=== PATIENT | male | born 1945 | race Caucasian/White ===

== ENCOUNTER → 2020-05-09 10:25 | Outpatient (BNVA) | payer MEDICARE, SELFPAY | PROVIDERS: PCP Internal Medicine; Visit Provider Urology | DX: R31.29 Other microscopic hematuria (principal) | CPT/HCPCS: 81002; 99212 ==

== ENCOUNTER 2023-03-22 15:34 | Emergency (ER) | payer MEDICARE, SELFPAY ==
--- NOTE | ~2023-03-22 | CT_ITS ---
EXAMINATION: CT HEAD WITHOUT CONTRAST CLINICAL INFORMATION: 27-year-old male with acute mental status change. COMPARISON: None available. TECHNIQUE: Contiguous axial imaging was performed from the skull base to vertex without intravenous administration of contrast. This CT examination was performed using dose optimization techniques as appropriate, variously including the following: *Automated exposure control *Adjustment of mA and/or kV according to patient size (this includes techniques or standardized protocols for targeted exams where dose is matched to indication/reason for exam; i.e. extremities or head) *Use of iterative reconstruction technique DLP: 620 mGy-cm FINDINGS: There is no evidence of acute intracranial hemorrhage or edematous territorial infarction. De Leon-white matter differentiation is preserved. There is no abnormal attenuation within the brain parenchyma. The ventricles are normal in morphology but prominent sulci and cisterns are dilated. No evidence for obstructive hydrocephalus. No abnormal mass effect or midline shift. No extra-axial fluid collections. No acute soft tissue or osseous abnormalities. The mastoid air cells and visualized paranasal sinuses are clear. CT/CT head/brain wo IV con IMPRESSION: No acute intracranial pathology. Global atrophy
--- NOTE | 2023-03-22 16:15 | ED.AMS ---
HPI - Altered Mental Status General Chief Complaint: Altered Mental Status Stated Complaint: AMS FROM [facility] Time Seen by Provider: 03/22/23 16:14 Source: EMS and RN notes reviewed Mode of arrival: EMS Limitations: altered mental status History of Present Illness HPI narrative: Patient from [facility] with history of AFib on Eliquis has pacemaker admitted hospital 1 week ago for ? Dementia comes here as patient was very agitated and assaulting the staff which is new per staff no recent fall or vomiting no fever patient received 5 mg of Zyprexa and 2 mg of Ativan IM prior to arrival according to the staff patient agitation and behavior started 2 days after arrival to the group home and is getting worse Related Data Home Medications Medication Instructions Recorded Confirmed apixaban 5 mg tablet 5 mg PO BID 05/09/20 03/22/23 isosorbide mononitrate 60 mg 60 mg PO DAILY 05/09/20 03/22/23 tablet,extended release 24 hr acetaminophen 325 mg tablet 650 mg PO Q6H PRN Pain (Scale 03/22/23 03/22/23 Score 1-3) atorvastatin 40 mg tablet 40 mg PO BEDTIME 03/22/23 03/22/23 digoxin 125 mcg (0.125 mg) tablet 125 mcg PO DAILY 03/22/23 03/22/23 divalproex 500 mg tablet,delayed 500 mg PO BID 03/22/23 03/22/23 release hydroxyzine HCl 50 mg tablet 50 mg PO Q6H PRN Anxiety 03/22/23 03/22/23 metoprolol tartrate 50 mg tablet 50 mg PO BID 03/22/23 03/22/23 mirtazapine 7.5 mg tablet 7.5 mg PO BEDTIME 03/22/23 03/22/23 ondansetron 4 mg disintegrating 4 mg PO Q6H PRN Nausea And Vomiting 03/22/23 03/22/23 tablet risperidone 0.25 mg tablet 0.25 mg PO DAILY PRN Agitation 03/22/23 03/22/23 risperidone 0.5 mg tablet 0.5 mg PO BID 03/22/23 03/22/23 rivastigmine tartrate 6 mg capsule 6 mg PO BID 03/22/23 03/22/23 sennosides 8.6 mg tablet (senna) 8.6 mg PO BID 03/22/23 03/22/23 Allergies Allergy/AdvReac Type Severity Reaction Status Date / Time No Known Allergies Allergy Verified 05/09/20 10:33 Review of Systems Review of Systems: Yes Unobtainable due to mental status PMFSH Past Medical History Medical History Pacemaker Microscopic hematuria Surgical History History of total right knee replacement Family History Family History Father No problems noted. Social History Social History Smoked in Last 30 Days: No Use of substances other than those prescribed or required for medical reasons: No Advance Directives: No Advance Directives Information Provided: No Physical Exam ED Vital Signs: Vital Signs - 24 hr 03/22/23 16:17 03/22/23 17:08 03/22/23 19:21 Temperature 99.9 F 97.9 F Pulse Rate 82 75 Respiratory Rate 16 18 Blood Pressure 110/78 97/63 Pulse Oximetry 98 96 Oxygen Delivery Method Room Air Room Air Room Air 03/22/23 23:03 Temperature Pulse Rate 76 Respiratory Rate 12 Blood Pressure 106/65 Pulse Oximetry Oxygen Delivery Method BMI result Body Mass Index 24.4 Appearance: Lethargic. No acute distress. Eyes: Pupils round and reactive ENT: Pharynx normal. Oral Mucosa moist Neck: Normal inspection. Neck supple. CVS: Normal heart rate and rhythm. Pulses normal. Respiratory: No respiratory distress. Equal air entry bilateral, Abdomen: Soft and nontender. Bowel sounds are present, no mass palpable, no CVA tenderness Skin: Skin warm and dry. Normal skin color. Normal skin turgor. Extremities: No lower extremity edema. neuro: Moving all 4 extremities agitated no focal deficits Medications Administered Discontinued Medications Generic Name Dose Route Start Last Admin Trade Name Freq PRN Reason Stop Dose Admin Haloperidol Lactate 5 mg 03/22/23 21:01 03/22/23 22:59 Haloperidol Lactate 5 Mg/Ml Vial IM 03/22/23 21:02 5 mg ONCE ONE Administration Medical Decision Making Medical Decision Making [facility] Narrative: Patient dementia with psychotic behavior with agitation CT scan negative for any acute labs are stable sent the patient back to group home advised to continue his medication follow with psychiatrist Lab Data MDM Lab Attestation statement: I reviewed the patient's lab results. 03/22/23 19:20 03/22/23 19:20 Labs: Lab Results 03/22/23 03/22/23 Range/Units 19:20 19:43 WBC 6.9 (4.8-10.8) X10*3/uL RBC 4.59 L (4.60-5.80) X10*6/uL Hgb 14.3 (14.0-18.0) g/dl Hct 41.0 L (42.0-52.0) % MCV 89.3 (80.0-98.0) fL MCH 31.2 (27.0-33.0) pg MCHC 34.9 (31.0-36.0) g/dl RDW 12.9 (11.0-16.0) % Plt Count 227 (160-400) X10*3/uL MPV 9.6 (9.4-12.4) fL Immature Gran % (Auto) 0.1 (0.0-0.4) % Neut % (Auto) 74.8 H (45-73) % Lymph % (Auto) 18.4 L (20-40) % [place] % (Auto) 5.8 (2-11) % Eos % (Auto) 0.6 (0-4) % Baso % (Auto) 0.3 (0-2) % Lymph # (Auto) 1.3 (1.2-4.9) X10*3/uL [place] # (Auto) 0.4 (0.1-1.2) X10*3/uL Eos # (Auto) 0.0 (0.0-0.4) X10*3/uL Baso # (Auto) 0.0 (0.0-0.2) X10*3/uL Abs Immat Gran (auto) 0.01 (0.00-0.03) X10*3/uL Absolute Neuts (auto) 5.1 (2.0-8.3) x10*3/uL Absolute Nucleated RBC 0.000 (0.0-0.012) X10*3/uL Nucleated RBC % (auto) 0.0 (0.0-0.2) /100WBC PT 16.8 H (11.1-13.3) SEC INR 1.4 H (0.9-1.1) APTT 37.2 H (26.0-36.8) SEC Sodium 144 (135-145) mmol/L Potassium 3.7 (3.3-5.1) mmol/L Chloride 107 (96-108) mmol/L Carbon Dioxide 26 (22-29) mmol/L Anion Gap 15 (12-20) BUN 19 H (9-16) mg/dL Creatinine 1.05 (0.5-1.4) mg/dL Estim Creat Clear Calc 58.9 Estimated GFR > 60 Random Glucose 115 (60-115) mg/dL Calcium 9.2 (8.4-10.2) mg/dL Total Bilirubin 1.1 H (0.0-1.0) mg/dL AST 33 (5-37) U/L ALT 22 (0-40) U/L Alkaline Phosphatase 70 (39-117) U/L Total Protein 7.8 (6.5-8.0) g/dL Albumin 4.1 (3.5-5.0) g/dL Urine Color Dark Yellow Urine Appearance Clear Urine pH 5.5 (5.0-9.0) Ur Specific [place] >= 1.030 H (1.005-1.025) Urine Protein Trace (Neg-Trace) mg/dL Urine Glucose (UA) Negative (Negative) mg/dL Urine Ketones 40 (Negative) mg/dL Urine Blood Large (3+) H (Negative) Urine Nitrite Negative (Negative) Ur Leukocyte Esterase Negative (Negative) Urine RBC >20 H (0-2) /HPF Urine WBC 11-20 H (0-5) /HPF Ur Squamous Epith Cells 0-2 (0-2) /HPF Urine Bacteria None Seen (None Seen) Hyaline Casts 3-5 (0-2) /LPF Discharge Plan Discharge Clinical Impression: Dementia with psychotic disturbance Patient Disposition: Xfer Psychiatric Hosp Transfer Details: Dementia unit Instructions: Dementia (ED) Additional Instructions: Patient's CT scan of the head is negative labs are stable Needs psychiatric evaluation/medication adjustment by psychiatrist for now continue Remeron and Risperdal Patient may need Zyprexa for severe agitation Patient relax and calm at the time of transfer to dementia unit Prescriptions: No Action sennosides [senna] 8.6 mg Tablet 8.6 mg PO BID risperidone 0.25 mg Tablet 0.25 mg PO DAILY PRN (Reason: Agitation) divalproex 500 mg Tablet,Delayed Release (Dr/Ec) 500 mg PO BID rivastigmine tartrate 6 mg Capsule 6 mg PO BID metoprolol tartrate 50 mg Tablet 50 mg PO BID digoxin 125 mcg (0.125 mg) Tablet 125 mcg PO DAILY ondansetron 4 mg Tablet,Disintegrating 4 mg PO Q6H PRN (Reason: Nausea And Vomiting) risperidone 0.5 mg Tablet 0.5 mg PO BID mirtazapine 7.5 mg Tablet 7.5 mg PO BEDTIME acetaminophen 325 mg Tablet 650 mg PO Q6H PRN (Reason: Pain (Scale Score 1-3)) hydroxyzine HCl 50 mg Tablet 50 mg PO Q6H PRN (Reason: Anxiety) atorvastatin 40 mg Tablet 40 mg PO BEDTIME isosorbide mononitrate 60 mg tablet extended release 24 hr 60 mg PO DAILY Eliquis 5 mg tablet 5 mg PO BID Interventions: Acute Care Transfer Worksheet (ED) Last Done: 03/22/23 23:12 Discharge Date/Time: 03/22/23 23:14
[2023-03-22 16:17] VITALS: PULSE 104; TEMP 37.7; O2SAT 95; BMI 24.4
--- NOTE | 2023-03-22 16:25 | PHA.MEDREC ---
Pharmacy Consult ? Medication Reconciliation Pharmacy has completed the medication reconciliation. Patient came from [place] with med list. Patient on rousvastatin at home but was switch to atorvastatin while at [facility]. Patient prescribed rivastigme patches at home but switched to PO tablets at [facility]. Kept all medications how patient has been receiving them at [place]. Cheryl Ackerman, PharmD
--- NOTE | 2023-03-22 16:30 | PC.NURSE ---
pt presents to the ED as disoriented/agitated/combative towards staff at [facility] in [place]. per ems, staff at facility administered 5mg of ativan and 5mg zyprexa 40 minutes prior to arrival d/t behavioral concern. pt remains disoriented/agitated/combative towards staff upon ED arrival. 3:1 assist needed in attempts to change pt into hospital attire. equipment placed on pt when he then continuously ripped equipment off. rectal temperature obtained on ED arrival at 99.9. no other vitals obtained at this time d/t behavior. ED provider bedside assessing pt aware of pt's status. no sob/wob noted. respirations even and unlabored.
--- NOTE | 2023-03-22 17:01 | MHC.EDTECH ---
Patient inc therefore patient changed and repositioned
[2023-03-22 17:08] VITALS: BP 110/78; PULSE 82; RESP 16; O2SAT 98
--- NOTE | 2023-03-22 17:08 | PC.NURSE ---
pt incontinent of urine. pt remains agitated/combative towards staff at this time. oil changer successful. fresh pads applied to bed. vss and up to date. nsr on the director correctional agency. [place] steam table attendant now bedside for support. per employee, pt has had an increase in agitation/being combative towards staff x 2 days. employee states that around a week ago the pt was able to perform ADL's but needed some assistance w/ feeding. pt now remains bedbound as he is too altered to participate in wn care/ambulate as he has an unsteady gait. respirations remain even and unlabored. call [facility] placed within reach.
--- NOTE | 2023-03-22 17:20 | PC.NURSE ---
pt to CT at this time. will attempt to obtain blood work when pt returns. shawneeamanda steam tender remains bedside at this time.
--- NOTE | 2023-03-22 17:32 | PC.NURSE ---
Sincere (RN for [facility]) called for a status update on pt at this time. this RN relayed information via telephone in regards to pt's care/plan of care at this time.
--- NOTE | 2023-03-22 19:03 | PC.NURSE ---
22gIV placed in the right forearm - delay in obtaining labs d/t pt's behavior/unable to have positive blood return via IV access.
--- NOTE | 2023-03-22 19:15 | PC.NURSE ---
assumed care of pt at 1900 - pt resting comfortably on stretcher with workers compensation adjuster at bedside. per previous RN, iv was placed but unable to obtain labs from it. tech made aware, going in room to attempt lab draw. provider aware. plan of care ongoing
[2023-03-22 19:21] VITALS: BP 97/63; PULSE 75; RESP 18; TEMP 36.6; O2SAT 96
[2023-03-22 19:27] LABS: MANUAL DIFF FLAG NO
[2023-03-22 19:33] LABS: Basophils Percent Auto 0.3 % (0-2); Eosinophils Percent Auto 0.6 % (0-4); Hemoglobin 14.3 g/dl (14.0-18.0); Imm Gran Abs Auto 0.01 X10*3/uL (0.00-0.03); Imm Gran Pct Auto 0.1 % (0.0-0.4); Lymphocytes Absolute Auto 1.3 X10*3/uL (1.2-4.9); Lymphocytes Percent Auto 18.4 % (20-40); Mean Corpuscular HGB Conc 34.9 g/dl (31.0-36.0); Mean Corpuscular Hemoglobin 31.2 pg (27.0-33.0); Mean Corpuscular Volume 89.3 fL (80.0-98.0); Mean Platelet Volume 9.6 fL (9.4-12.4); Monocytes Absolute Auto 0.4 X10*3/uL (0.1-1.2); Monocytes Percent Auto 5.8 % (2-11); Neutrophils Absolute Auto 5.1 x10*3/uL (2.0-8.3); Neutrophils Percent Auto 74.8 % (45-73); Platelet Count 227 X10*3/uL (160-400); Red Blood Count 4.59 X10*6/uL (4.60-5.80); Red Cell Distribution Width 12.9 % (11.0-16.0); White Blood Count 6.9 X10*3/uL (4.8-10.8)
[2023-03-22 19:43] LABS: Alanine Aminotransferase 22 U/L (0-40); Albumin Level 4.1 g/dL (3.5-5.0); Alkaline Phosphatase 70 U/L (39-117); Anion Gap 15 (12-20); Aspartate Amino Transferase 33 U/L (5-37); Bilirubin Total 1.1 mg/dL (0.0-1.0); Blood Urea Nitrogen 19 mg/dL (9-16); Calcium 9.2 mg/dL (8.4-10.2); Carbon Dioxide 26 mmol/L (22-29); Chloride 107 mmol/L (96-108); Creatinine Clr Calc Pharmacy 58.9; Estimated Glomerular Filt Rate > 60; Glucose Random 115 mg/dL (60-115); Potassium 3.7 mmol/L (3.3-5.1); Sodium 144 mmol/L (135-145); Total Protein 7.8 g/dL (6.5-8.0)
--- NOTE | 2023-03-22 19:44 | PC.NURSE ---
pt straight cath'd for urine sample per MD verbal order . tolerated well.
[2023-03-22 19:48] LABS: INTERNATIONAL NORM RATIO 1.4 (0.9-1.1); Prothrombin Time 16.8 SEC (11.1-13.3)
[2023-03-22 19:49] LABS: Appearance Urine Clear; Color Urine Dark Yellow; Glucose Urine UA Negative (Negative); Leukocyte Esterase Urine Negative (Negative); Nitrite Urine Negative (Negative); PH 5.5 (5.0-9.0); Specific Gravity - Urine >= 1.030 (1.005-1.025); UMIC TRIGGER UACC YES; Urine Blood Large (3+) (Negative); Urine Ketones 40 mg/dL (Negative); Urine Protein Trace mg/dL (Neg-Trace)
[2023-03-22 19:50] LABS: Partial Thromboplastin Time 37.2 SEC (26.0-36.8)
--- NOTE | 2023-03-22 19:53 | MHC.EDTECH ---
labs and urine collected by this field underwriter for prior shift
[2023-03-22 20:02] LABS: Bacteria Urine None Seen (None Seen); RBC Urine >20 /HPF (0-2); Squamous Epithelial Cell Urine 0-2 /HPF (0-2); UACC Culture Trigger YES
--- NOTE | 2023-03-22 20:48 | PC.NURSE ---
pt waiting for ambulance transfer back to facility
--- NOTE | 2023-03-22 21:12 | PC.NURSE ---
Pt facility requesting that we medicated patient with 2mg ativan IM and 5mg haldol IM. Charge nurse at facility saying they do not have enough staff to handle pt and that 5mg zyprexa po will not be enough. MD Alejandro made aware and on phone with nurse from facility. shortage of ativan, no IM vials available. MD ordering 5mg haldol IM to be administered prior to patient's departure. pt restless, agitated, swinging legs over side rails of stretcher. continues to be directed back into bed by staff. plan of care ongoing. waiting for ambulance transport back to facility.
[2023-03-22] MEDS: Haloperidol Lactate 5 MG/ML VIAL IM (22:59)
[2023-03-22 23:03] VITALS: BP 106/65; PULSE 76; RESP 12
== END 2023-03-22 23:14 ==
PROVIDERS: Emergency Provider Internal Medicine
DX: F03.92 Unspecified dementia, unspecified severity, with psychotic disturbance (principal); R41.82 Altered mental status, unspecified; I48.91 Unspecified atrial fibrillation; Z79.01 Long term (current) use of anticoagulants; Z79.899 Other long term (current) drug therapy
CPT/HCPCS: 36415; 70450; 80053; 81001; 85025; 85610; 85730; 87086; 96372; 99285; J1630